=== PATIENT | female | born 1935 | race Two or more races ===

== ENCOUNTER 2024-07-18 05:39 | Inpatient (IN) | payer MEDICARE, OTHER ==
[~2024-07-18] VITALS: Ht 154.9 cm; Wt 49.9 kg
[2024-07-18] MEDS ORDERED: TRAM100T23 PO (05:50)
[2024-07-18] MEDS ORDERED: PANTOPRAZOLE SODIUM 40 MG VIAL ONE (06:18)
[2024-07-18] MEDS ORDERED: ONDANSETRON 4 MG/2 ML VIAL ONE (06:18)
[2024-07-18] MEDS: IV NORMAL SALINE 500 ML BAG IV ONE (06:24)
[2024-07-18] MEDS: PANTOPRAZOLE SODIUM IV 80 MG in IV DEXTROSE 5% 100 ML IV ONE (06:24)
[2024-07-18] MEDS: ONDANSETRON 4 MG/2 ML VIAL IV ONE (06:25)
[2024-07-18 06:26] LABS: BASOPHILS # (AUTO) 0.1 K/UL (0.0-0.2); BASOPHILS % (AUTO) 0.7 % (0.0-2.0); EOSINOPHILS # (AUTO) 0.1 K/uL (0.0-0.7); EOSINOPHILS % (AUTO) 1.2 % (0.0-7.0); HEMOGLOBIN 12.2 g/dL (10.9-14.3); LYMPHOCYTES # (AUTO) 1.3 K/uL (0.8-4.8); LYMPHOCYTES % (AUTO) 10.2 % (20.5-51.5); MEAN CORPUSCULAR HEMOGLOBIN 31.4 uug (24.7-32.8); MEAN CORPUSCULAR HGB CONC 34 g/dL (32.3-35.6); MEAN CORPUSCULAR VOLUME 92.9 fL (75.5-95.3); MONOCYTES # (AUTO) 0.8 K/uL (0.1-1.30); MONOCYTES % (AUTO) 6.2 % (0.0-11.0); NEUTROPHILS # (AUTO) 10.1 K/uL (1.8-8.9); NEUTROPHILS % (AUTO) 81.7 % (38.5-71.5); PLATELET COUNT (AUTO) 282 K/uL (179-408); RED BLOOD CELL COUNT(AUTO) 3.88 MIL/uL (3.63-4.92); RED CELL DISTRIBUTION WIDTH 14.2 % (12.3-17.7); WHITE BLOOD COUNT (AUTO) 12.4 K/uL (3.8-11.8)
[2024-07-18 06:37] LABS: DIFFERENTIAL COMMENT 1
[2024-07-18 06:40] LABS: CALCIUM 9.2 mg/dL (8.5-10.1); CARBON DIOXIDE 26 mmol/L (21-32); CHLORIDE 97 mmol/L (98-107); GLUCOSE 152 mg/dL (74-106); POTASSIUM 4.1 mmol/L (3.5-5.1); SODIUM SERUM 136 mmol/L (136-145); UREA NITROGEN, BLOOD 42 mg/dL (7-18)
[2024-07-18 06:46] LABS: ALANINE AMINOTRANSFERASE < 6 U/L (14-59); ALKALINE PHOSPHATASE 68 U/L (50-136); BILIRUBIN,DIRECT < 0.1 mg/dL (0.0-0.2); BILIRUBIN,TOTAL 0.9 mg/dL (0.2-1.0); TOTAL PROTEIN, SERUM 6.5 g/dL (6.4-8.2)
[2024-07-18 06:50] LABS: LACTIC ACID 7.2 mmol/L (0.4-2.0)
[2024-07-18 07:10] LABS: ALBUMIN 2.5 g/dL (3.4-5.0); ASPARTATE AMINOTRANSFERASE 16 U/L (15-37)
[2024-07-18] MEDS: IV LACTATED RINGERS SOLUTION 1,000 ML BAG IV ONE (07:24)
[2024-07-18 07:56] LABS: *OCCULT BLOOD STOOL POSITIVE (NEGATIVE)
[2024-07-18 09:50] VITALS: BP 112/60; TEMP 97.6; O2SAT 96
[2024-07-18] MEDS ORDERED: REMEDY ESSENTIAL ZINC PASTE 113 GM TP PRN (11:15)
[2024-07-18] MEDS ORDERED: ONDANSETRON 4 MG/2 ML VIAL IV PRN (11:15)
[2024-07-18] MEDS: IV NS 1000 ML 1,000 ML IV PRN (11:55)
[2024-07-18] MEDS: CEFTRIAXONE 1 G in IV DEXTROSE 5% 50 ML IV SCH (12:08)
[2024-07-18] MEDS: AZITHROMYCIN IV 250 MG in IV DEXTROSE 5% 250 ML IV SCH (12:14)
[2024-07-18] MEDS ORDERED: CARV3.122 PO (14:09)
[2024-07-18 14:13] LABS: HEMATOCRIT 25.4 % (31.2-41.9); HEMOGLOBIN 8.8 g/dL (10.9-14.3)
[2024-07-18] MEDS ORDERED: AMLO-212 PO (14:13)
[2024-07-18 15:56] VITALS: BP 96/50; TEMP 97.5; O2SAT 96
[2024-07-18] MEDS: IV NORMAL SALINE 500 ML IV ONE (18:48)
[2024-07-18 18:59] LABS: HEMATOCRIT 25.9 % (31.2-41.9); HEMOGLOBIN 9.1 g/dL (10.9-14.3)
[2024-07-18 19:45] VITALS: BP 106/49; TEMP 97.6; O2SAT 95
[2024-07-18] MEDS: PANTOPRAZOLE SODIUM 40 MG VIAL IV SCH (20:51)
[2024-07-18] MEDS: MORPHINE SULFATE 2 MG/1 ML DISP.SYRIN IV PRN (23:47)
[2024-07-19 00:09] VITALS: BP 117/58; TEMP 98; O2SAT 97
[2024-07-19 00:36] LABS: HEMATOCRIT 25.1 % (31.2-41.9); HEMOGLOBIN 8.8 g/dL (10.9-14.3)
[2024-07-19 04:27] VITALS: BP 121/50; TEMP 97.6; O2SAT 100
[2024-07-19 07:06] LABS: BASOPHILS % (AUTO) 0.6 % (0.0-2.0); EOSINOPHILS # (AUTO) 0.3 K/uL (0.0-0.7); EOSINOPHILS % (AUTO) 4.1 % (0.0-7.0); HEMATOCRIT 24.1 % (31.2-41.9); HEMOGLOBIN 8.7 g/dL (10.9-14.3); LYMPHOCYTES % (AUTO) 13.9 % (20.5-51.5); MEAN CORPUSCULAR HEMOGLOBIN 32.3 uug (24.7-32.8); MEAN CORPUSCULAR HGB CONC 36 g/dL (32.3-35.6); MEAN CORPUSCULAR VOLUME 89.6 fL (75.5-95.3); MONOCYTES # (AUTO) 0.5 K/uL (0.1-1.30); MONOCYTES % (AUTO) 7.4 % (0.0-11.0); NEUTROPHILS # (AUTO) 5.3 K/uL (1.8-8.9); PLATELET COUNT (AUTO) 190 K/uL (179-408); RED BLOOD CELL COUNT(AUTO) 2.68 MIL/uL (3.63-4.92); RED CELL DISTRIBUTION WIDTH 14.3 % (12.3-17.7); WHITE BLOOD COUNT (AUTO) 7.1 K/uL (3.8-11.8)
[2024-07-19 07:08] LABS: CALCIUM 7.2 mg/dL (8.5-10.1); CARBON DIOXIDE 26 mmol/L (21-32); CHLORIDE 106 mmol/L (98-107); CREATININE 0.5 mg/dL (0.6-1.3); GLUCOSE 83 mg/dL (74-106); MAGNESIUM 1.4 mg/dL (1.8-2.4); PHOSPHOROUS 2.4 mg/dL (2.5-4.9); POTASSIUM 3.1 mmol/L (3.5-5.1); SODIUM SERUM 140 mmol/L (136-145); UREA NITROGEN, BLOOD 24 mg/dL (7-18)
[2024-07-19 07:24] VITALS: BP 122/63; TEMP 98.4; O2SAT 97
[2024-07-19] MEDS ORDERED: TRAM50TA2 PO (08:47)
[2024-07-19] MEDS ORDERED: ALEN70TA80 PO (09:21)
[2024-07-19] MEDS: POTASSIUM CHLORIDE 50 ML IV SCH (10:06)
[2024-07-19] MEDS: MAGNESIUM SULFATE/D5W 100 ML IV SCH (10:07)
[2024-07-19 11:07] VITALS: BP 115/58; TEMP 98.2; O2SAT 95
[2024-07-19] MEDS: POTASSIUM CHLORIDE 20 MEQ POWDER PACKET GT ONE (12:16)
[2024-07-19 15:21] VITALS: BP 116/64; TEMP 98.4; O2SAT 94
[2024-07-19] MEDS: SODIUM PHOSPHATE MM 15 MMOL in IV NORMAL SALINE 250 ML IV ONE (18:21)
[2024-07-19 19:00] VITALS: BP 119/58; TEMP 98.3; O2SAT 97
[2024-07-20 00:37] VITALS: BP 128/65; TEMP 98.9; O2SAT 97
[2024-07-20 05:05] VITALS: BP 120/64; TEMP 99.1; O2SAT 100
[2024-07-20 06:53] LABS: BASOPHILS % (AUTO) 0.9 % (0.0-2.0); EOSINOPHILS # (AUTO) 0.3 K/uL (0.0-0.7); EOSINOPHILS % (AUTO) 6.2 % (0.0-7.0); HEMATOCRIT 24.8 % (31.2-41.9); HEMOGLOBIN 8.9 g/dL (10.9-14.3); LYMPHOCYTES # (AUTO) 0.6 K/uL (0.8-4.8); LYMPHOCYTES % (AUTO) 11.8 % (20.5-51.5); MEAN CORPUSCULAR HEMOGLOBIN 32.7 uug (24.7-32.8); MEAN CORPUSCULAR HGB CONC 36 g/dL (32.3-35.6); MEAN CORPUSCULAR VOLUME 91.5 fL (75.5-95.3); MONOCYTES # (AUTO) 0.4 K/uL (0.1-1.30); MONOCYTES % (AUTO) 7.8 % (0.0-11.0); NEUTROPHILS # (AUTO) 3.7 K/uL (1.8-8.9); NEUTROPHILS % (AUTO) 73.3 % (38.5-71.5); PLATELET COUNT (AUTO) 191 K/uL (179-408); RED BLOOD CELL COUNT(AUTO) 2.71 MIL/uL (3.63-4.92); RED CELL DISTRIBUTION WIDTH 14.5 % (12.3-17.7)
[2024-07-20 06:57] LABS: DIFFERENTIAL COMMENT 1
[2024-07-20 06:58] LABS: CALCIUM 7.3 mg/dL (8.5-10.1); CARBON DIOXIDE 28 mmol/L (21-32); CHLORIDE 107 mmol/L (98-107); CREATININE 0.4 mg/dL (0.6-1.3); GLUCOSE 86 mg/dL (74-106); POTASSIUM 3.8 mmol/L (3.5-5.1); SODIUM SERUM 140 mmol/L (136-145); UREA NITROGEN, BLOOD 7 mg/dL (7-18)
[2024-07-20 08:00] VITALS: BP 127/58; TEMP 98.1; O2SAT 96
[2024-07-20 08:30] VITALS: BP 103/52; TEMP 98.1; O2SAT 97
[2024-07-20 15:02] VITALS: BP 125/56; TEMP 98.8; O2SAT 100
[2024-07-20] MEDS ORDERED: IV NORMAL SALINE 250 ML IV ONE (15:16)
[2024-07-20] MEDS ORDERED: IOHEXOL 300MG/ML 100 ML INFUS..BTL ONE (15:16)
[2024-07-20] MEDS ORDERED: SWABABLE VALVE TRANSFER SET EA MC ONE (15:16)
[2024-07-20 19:00] VITALS: BP 109/50; TEMP 98.4; O2SAT 99
[2024-07-21] VITALS (7 sets, daily range): BP systolic 99–110; BP diastolic 41–62; TEMP 97.8–98.6; O2SAT 94–99
[2024-07-21] MEDS: KETOROLAC TROMETHAMINE 15 MG INJ IVP ONE (03:04)
[2024-07-21 07:29] LABS: BASOPHILS % (AUTO) 0.4 % (0.0-2.0); EOSINOPHILS # (AUTO) 0.2 K/uL (0.0-0.7); EOSINOPHILS % (AUTO) 3.2 % (0.0-7.0); HEMATOCRIT 22.2 % (31.2-41.9); HEMOGLOBIN 7.8 g/dL (10.9-14.3); LYMPHOCYTES # (AUTO) 0.7 K/uL (0.8-4.8); LYMPHOCYTES % (AUTO) 14.7 % (20.5-51.5); MEAN CORPUSCULAR HEMOGLOBIN 31.7 uug (24.7-32.8); MEAN CORPUSCULAR HGB CONC 35 g/dL (32.3-35.6); MEAN CORPUSCULAR VOLUME 90.9 fL (75.5-95.3); MONOCYTES # (AUTO) 0.5 K/uL (0.1-1.30); MONOCYTES % (AUTO) 9.9 % (0.0-11.0); NEUTROPHILS # (AUTO) 3.4 K/uL (1.8-8.9); NEUTROPHILS % (AUTO) 71.8 % (38.5-71.5); PLATELET COUNT (AUTO) 170 K/uL (179-408); RED CELL DISTRIBUTION WIDTH 14.2 % (12.3-17.7); WHITE BLOOD COUNT (AUTO) 4.8 K/uL (3.8-11.8)
[2024-07-21 07:33] LABS: DIFFERENTIAL COMMENT 1; RED BLOOD CELL COUNT(AUTO) 2.45 MIL/uL (3.63-4.92)
[2024-07-21 07:49] LABS: CARBON DIOXIDE 27 mmol/L (21-32); CHLORIDE 106 mmol/L (98-107); CREATININE 0.5 mg/dL (0.6-1.3); GLUCOSE 94 mg/dL (74-106); SODIUM SERUM 138 mmol/L (136-145); UREA NITROGEN, BLOOD 5 mg/dL (7-18)
[2024-07-21] MEDS: POTASSIUM CHLORIDE 20 MEQ POWDER PACKET GT ONE (11:36)
[2024-07-21] MEDS: HYDROCODONE/APAP 5-325MG TABLET PO PRN (16:56)
[2024-07-21] MEDS: CARVEDILOL 3.125 MG TABLET PO SCH (17:00)
[2024-07-21] MEDS: AMLODIPINE 5 MG TABLET PO SCH (17:00)
[2024-07-21] MEDS: TRAMADOL HCL 50 MG TABLET PO PRN (20:54)
[2024-07-22 05:00] VITALS: BP 107/51; TEMP 98; O2SAT 94
[2024-07-22 06:47] LABS: CALCIUM 7.1 mg/dL (8.5-10.1); CARBON DIOXIDE 29 mmol/L (21-32); CHLORIDE 107 mmol/L (98-107); CREATININE 0.5 mg/dL (0.6-1.3); GLUCOSE 79 mg/dL (74-106); POTASSIUM 3.9 mmol/L (3.5-5.1); SODIUM SERUM 138 mmol/L (136-145); UREA NITROGEN, BLOOD 5 mg/dL (7-18)
[2024-07-22 06:53] LABS: BASOPHILS % (AUTO) 0.8 % (0.0-2.0); EOSINOPHILS # (AUTO) 0.3 K/uL (0.0-0.7); HEMATOCRIT 22.6 % (31.2-41.9); HEMOGLOBIN 7.8 g/dL (10.9-14.3); LYMPHOCYTES # (AUTO) 0.6 K/uL (0.8-4.8); LYMPHOCYTES % (AUTO) 18.7 % (20.5-51.5); MEAN CORPUSCULAR HEMOGLOBIN 32.1 uug (24.7-32.8); MEAN CORPUSCULAR HGB CONC 35 g/dL (32.3-35.6); MONOCYTES # (AUTO) 0.4 K/uL (0.1-1.30); MONOCYTES % (AUTO) 12.3 % (0.0-11.0); NEUTROPHILS % (AUTO) 59.2 % (38.5-71.5); PLATELET COUNT (AUTO) 170 K/uL (179-408); RED CELL DISTRIBUTION WIDTH 14.9 % (12.3-17.7); WHITE BLOOD COUNT (AUTO) 3.4 K/uL (3.8-11.8)
[2024-07-22 06:59] LABS: DIFFERENTIAL COMMENT 1; RED BLOOD CELL COUNT(AUTO) 2.44 MIL/uL (3.63-4.92)
[2024-07-22 08:32] VITALS: BP 120/59; TEMP 97.9; O2SAT 97
[2024-07-22] MEDS ORDERED: PANT40TA49 PO (10:24)
[2024-07-22] MEDS ORDERED: ACET325T53 PO (10:24)
[2024-07-22] MEDS ORDERED: LEVO500T90 PO (10:24)
[2024-07-22 11:57] VITALS: BP 99/39; TEMP 98.3; O2SAT 96
[2024-07-22 15:42] VITALS: BP 98/45; TEMP 98.1; O2SAT 95
[2024-07-22] MEDS: PANTOPRAZOLE SODIUM 40 MG TABLET.DR PO SCH (17:00)
[2024-07-22 19:59] VITALS: BP 96/46; TEMP 98.1; O2SAT 94
[2024-07-22 22:32] VITALS: BP 105/54; TEMP 98.1; O2SAT 93
[2024-07-22] MEDS: ACETAMINOPHEN 325 MG TABLET PO PRN (22:34)
[2024-07-25] MEDS ORDERED: ALENDRONATE SODIUM 70 MG TABLET PO SCH (09:00)
== END 2024-07-22 22:40 | DRG 377 ==
LOC: ER 06:04 → TELE3 07:00 → MEDSURG3 07-20 09:51
PROVIDERS: ADMIT Nurse Practitioner Acute Care; ATTEND Nurse Practitioner Acute Care
PROC: 05HC33Z Insertion of Infusion Device into Left Basilic Vein, Percutaneous Approach (ICD-10-PCS; 2024-07-19)
PROC: 0DJ08ZZ Inspection of Upper Intestinal Tract, Via Natural or Artificial Opening Endoscopic (ICD-10-PCS; 2024-07-19)
PROC: 0DB68ZX Excision of Stomach, Via Natural or Artificial Opening Endoscopic, Diagnostic (ICD-10-PCS; 2024-07-20)
PROC: 0DB98ZX Excision of Duodenum, Via Natural or Artificial Opening Endoscopic, Diagnostic (ICD-10-PCS; principal; 2024-07-20 10:00)
DX: K29.71 Gastritis, unspecified, with bleeding (principal); J15.9 Unspecified bacterial pneumonia; A09 Infectious gastroenteritis and colitis, unspecified; J91.8 Pleural effusion in other conditions classified elsewhere; E87.20 Acidosis, unspecified; E44.0 Moderate protein-calorie malnutrition; N17.9 Acute kidney failure, unspecified; K92.2 Gastrointestinal hemorrhage, unspecified; K25.9 Gastric ulcer, unspecified as acute or chronic, without hemorrhage or perforation; K26.9 Duodenal ulcer, unspecified as acute or chronic, without hemorrhage or perforation; N20.0 Calculus of kidney; R29.6 Repeated falls; S22.31XD Fracture of one rib, right side, subsequent encounter for fracture with routine healing; W19.XXXD Unspecified fall, subsequent encounter; L60.3 Nail dystrophy; L85.3 Xerosis cutis; I95.1 Orthostatic hypotension; F03.90 Unspecified dementia, unspecified severity, without behavioral disturbance, psychotic disturbance, mood disturbance, and anxiety; E88.09 Other disorders of plasma-protein metabolism, not elsewhere classified; D64.9 Anemia, unspecified; K31.89 Other diseases of stomach and duodenum; K57.30 Diverticulosis of large intestine without perforation or abscess without bleeding; Z79.899 Other long term (current) drug therapy; I10 Essential (primary) hypertension
CPT/HCPCS: 36415; 70450; 71045; 83605; 83735; 84100; 84484; 85018; 85025; 85730; 86850; 86900; 86901; 87040; 93307; A4606; A4663; A6209; A6213; G0378; J0456; J0696; J1885; J2270; J2405; J2470; J3475; J3480; J3490; J7040; J7050; J7120; Q9967